=== PATIENT | male | born 1945 | race Caucasian/White ===

== ENCOUNTER → 2018-08-27 08:15 | Outpatient (CLI) | payer MEDICARE, BC ==
[2014-04-25 01:09] VITALS: BMI 23.7
[~2018-08-27 08:15] MED LIST: ASPIRIN EC81 M1 PO; BRILINTA90 MG PO; COSOPT EYE DROPS5 ML EACH EYE; NORVASC10 MG PO; PLAVIX75 MG PO; PRAVACHOL40 MG PO; VASERETIC 10-251 TAB PO; XALATAN 0.0052.5 ML EACH EYE
== END | disposition home or self-care (01) ==
LOC: D.HCCARDIO 08:15
PROVIDERS: ATTEND Internal Medicine Cardiovascular Disease
DX: I25.10 Atherosclerotic heart disease of native coronary artery without angina pectoris (principal)

== ENCOUNTER → 2019-08-27 08:58 | Outpatient (CLI) | payer MEDICARE, BC ==
[2014-04-25 01:09] VITALS: BMI 23.7
== END | disposition home or self-care (01) ==
LOC: D.HCCECHO 08:30
PROVIDERS: ATTEND Internal Medicine Cardiovascular Disease
DX: I34.0 Nonrheumatic mitral (valve) insufficiency (principal)